=== PATIENT | female | born 1950 | race Caucasian/White ===

== ENCOUNTER 2022-01-30 20:21 | Emergency (ER) | payer MEDICARE, OTHER | END 2022-01-30 22:10 | disposition home or self-care (01) | LOC: MADERS 20:21 | DX: I10 Essential (primary) hypertension (principal); G44.209 Tension-type headache, unspecified, not intractable; Z79.82 Long term (current) use of aspirin; Z79.899 Other long term (current) drug therapy | CPT/HCPCS: 99283 ==

== ENCOUNTER 2022-11-30 14:18 | Emergency (ER) | payer MEDICARE, OTHER | END 2022-11-30 17:15 | disposition home or self-care (01) | LOC: MADERS 14:18 | DX: J02.9 Acute pharyngitis, unspecified (principal); E78.5 Hyperlipidemia, unspecified; I10 Essential (primary) hypertension; Z79.899 Other long term (current) drug therapy; Z79.82 Long term (current) use of aspirin | CPT/HCPCS: 70490 ==